=== PATIENT | female | born 1985 | race Caucasian/White ===

== ENCOUNTER → 2017-08-25 | Outpatient (CLI) | payer OTHER ==
[2017-08-25 17:52] LABS: HEMATOCRIT 42.1 % (36.0-47.0); HEMOGLOBIN 13.6 g/dl (12.0-16.0); MEAN CORPUSCULAR HEMOGLOBIN 27.6 pg (27.0-33.0); MEAN CORPUSCULAR HGB CONC 32.3 g/dl (32.0-36.5); MEAN CORPUSCULAR VOLUME 85.6 fl (80.0-96.0); PLATELET COUNT, AUTOMATED 268 10^3/uL (150-450); RED BLOOD COUNT 4.92 10^6/uL (4.00-5.40); RED CELL DISTRIBUTION WIDTH 13.3 % (11.5-14.5); WHITE BLOOD COUNT 7.6 10^3/uL (4.0-10.0)
[2017-08-25 17:56] LABS: ALBUMIN/GLOBULIN RATIO 1.18 (1.00-1.93); ALKALINE PHOSPHATASE 118 U/L (45-117); ALT/SGPT 35 U/L (12-78); ANION GAP 6 MEQ/L (8-16); AST/SGOT 20 U/L (7-37); BILIRUBIN,TOTAL 0.7 MG/DL (0.2-1.0); BLOOD UREA NITROGEN 9 MG/DL (7-18); CALCIUM LEVEL 8.5 MG/DL (8.5-10.1); CARBON DIOXIDE LEVEL 28 MEQ/L (21-32); CHLORIDE LEVEL 108 MEQ/L (98-107); CHOLESTEROL LEVEL 139 MG/DL (<200); CHOLESTEROL RISK RATIO 3.309 (<5); CREATININE FOR GFR 0.84 MG/DL (0.55-1.30); FREE T4 1.07 NG/DL (0.76-1.46); GLOMERULAR FILTRATION RATE > 60.0 (>60); GLUCOSE, FASTING 90 MG/DL (70-100); HDL CHOLESTEROL 42 MG/DL (>40); LDL CHOLESTEROL 74.6 MG/DL (<100); NON-HDL-C 97 MG/DL; POTASSIUM SERUM 4.2 MEQ/L (3.5-5.1); SODIUM LEVEL 142 MEQ/L (136-145); TOTAL PROTEIN 7.4 GM/DL (6.4-8.2); TRIGLYCERIDES LEVEL 112 MG/DL (<150)
[2017-08-27 09:25] LABS: TOTAL 25(OH) VITAMIN D 33.7 NG/ML (30.0-100.0)
== END ==
LOC: M ADAMS 09:03
DX: Z13.0 Encounter for screening for diseases of the blood and blood-forming organs and certain disorders involving the immune mechanism (principal); Z13.29 Encounter for screening for other suspected endocrine disorder; E55.9 Vitamin D deficiency, unspecified; Z13.220 Encounter for screening for lipoid disorders
CPT/HCPCS: 84443

== ENCOUNTER 2017-09-04 16:01 | Emergency (ER) | payer OTHER ==
[2017-09-04] MEDS: EXPOSURE KIT-ADULT 7 DAY SUPPLY PO (19:15)
[2017-09-04 19:34] LABS: BASO # 0.1 10^3/uL (0.0-0.2); BASO % 0.7 % (0.0-1.0); EOS # 0.2 10^3/uL (0.0-0.50); EOS % 2.3 % (0.0-3.0); HEMATOCRIT 42.2 % (36.0-47.0); HEMOGLOBIN 14.2 g/dl (12.0-16.0); IMMATURE GRANULOCYTE % 0.2 % (0-3.0); LYMPH # 2.2 10^3/uL (1.5-4.5); MEAN CORPUSCULAR HEMOGLOBIN 28.5 pg (27.0-33.0); MEAN CORPUSCULAR HGB CONC 33.6 g/dl (32.0-36.5); MEAN CORPUSCULAR VOLUME 84.6 fl (80.0-96.0); MONO # 0.6 10^3/uL (0.0-0.8); MONO % 6.3 % (0.0-5.0); NEUTROPHILS # 7.1 10^3/uL (1.8-7.7); NEUTROPHILS % 69.5 % (36.0-66.0); PLATELET COUNT, AUTOMATED 267 10^3/uL (150-450); RED BLOOD COUNT 4.99 10^6/uL (4.00-5.40); RED CELL DISTRIBUTION WIDTH 13.2 % (11.5-14.5); WHITE BLOOD COUNT 10.2 10^3/uL (4.0-10.0)
[2017-09-04 20:09] LABS: ALBUMIN 4.3 GM/DL (3.2-5.2); ALBUMIN/GLOBULIN RATIO 1.26 (1.00-1.93); ALKALINE PHOSPHATASE 115 U/L (45-117); ALT/SGPT 30 U/L (12-78); ANION GAP 9 MEQ/L (8-16); AST/SGOT 17 U/L (7-37); BILIRUBIN,TOTAL 0.5 MG/DL (0.2-1.0); BLOOD UREA NITROGEN 12 MG/DL (7-18); CALCIUM LEVEL 9.2 MG/DL (8.5-10.1); CARBON DIOXIDE LEVEL 27 MEQ/L (21-32); CHLORIDE LEVEL 104 MEQ/L (98-107); CREATININE FOR GFR 0.84 MG/DL (0.55-1.30); GLOMERULAR FILTRATION RATE > 60.0 (>60); GLUCOSE, FASTING 81 MG/DL (70-100); POTASSIUM SERUM 3.9 MEQ/L (3.5-5.1); SODIUM LEVEL 140 MEQ/L (136-145); TOTAL PROTEIN 7.7 GM/DL (6.4-8.2)
[2017-09-05 10:04] LABS: HEPATITIS B SURFACE ANTIGEN NEGATIVE (NEGATIVE)
[2017-09-05 10:27] LABS: HIV 1&2 SCREEN CENTAUR NEGATIVE (NEGATIVE)
[2017-09-05 10:28] LABS: HEPATITIS B SURFACE ANTIBODY POSITIVE (POSITIVE)
== END 2017-09-04 19:49 | disposition home or self-care (01) ==
LOC: M ED 16:01
DX: Z77.21 Contact with and (suspected) exposure to potentially hazardous body fluids (principal); Z79.899 Other long term (current) drug therapy
CPT/HCPCS: 80053

== ENCOUNTER → 2018-05-03 | Outpatient (REF) | payer OTHER | LOC: M LAB REF 19:09 | DX: J02.9 Acute pharyngitis, unspecified (principal) ==

== ENCOUNTER → 2018-09-07 | Outpatient (CLI) | payer OTHER ==
[~2018-09-07] MED LIST: DOCU10CA PO; IBUP80TA PO; MAPA500T2 PO; PRENTAB16 PO; RALT40TA PO; TRUVTAB PO; VITA20008 PO; ZOFR4TAB14 PO
[2018-09-07 19:09] LABS: BASO # 0.1 10^3/uL (0.0-0.2); EOS # 0.2 10^3/uL (0.0-0.50); EOS % 2.7 % (0.0-3.0); HEMATOCRIT 41.3 % (36.0-47.0); HEMOGLOBIN 13.3 g/dl (12.0-15.5); LYMPH # 1.3 10^3/uL (1.5-4.5); LYMPH % 17.6 % (24.0-44.0); MEAN CORPUSCULAR HGB CONC 32.2 g/dl (32.0-36.5); MEAN CORPUSCULAR VOLUME 86.9 fl (80.0-96.0); MONO # 0.5 10^3/uL (0.0-0.8); MONO % 6.6 % (0.0-5.0); NEUTROPHILS # 5.1 10^3/uL (1.8-7.7); PLATELET COUNT, AUTOMATED 264 10^3/uL (150-450); RED BLOOD COUNT 4.75 10^6/uL (4.00-5.40); WHITE BLOOD COUNT 7.1 10^3/uL (4.0-10.0)
[2018-09-07 19:20] LABS: ALBUMIN 3.8 GM/DL (3.2-5.2); ALT/SGPT 37 U/L (12-78); BILIRUBIN,TOTAL 0.6 MG/DL (0.2-1.0); BLOOD UREA NITROGEN 9 MG/DL (7-18); CALCIUM LEVEL 8.2 MG/DL (8.5-10.1); CARBON DIOXIDE LEVEL 25 MEQ/L (21-32); CHLORIDE LEVEL 110 MEQ/L (98-107); CHOLESTEROL LEVEL 149 MG/DL (<200); CHOLESTEROL RISK RATIO 3.725 (<5); FREE T4 0.94 NG/DL (0.76-1.46); GLOMERULAR FILTRATION RATE > 60.0 (>60); GLUCOSE, FASTING 99 MG/DL (70-100); HDL CHOLESTEROL 40 MG/DL (>40); LDL CHOLESTEROL 87 MG/DL (<100); NON-HDL-C 109 MG/DL; POTASSIUM SERUM 4.1 MEQ/L (3.5-5.1); SODIUM LEVEL 142 MEQ/L (136-145); TOTAL PROTEIN 7.4 GM/DL (6.4-8.2); TRIGLYCERIDES LEVEL 111 MG/DL (<150)
[2018-09-07 20:02] LABS: HEMOGLOBIN A1c 5.2 %
[2018-09-09 10:38] LABS: TOTAL 25(OH) VITAMIN D 49.6 NG/ML (30.0-100.0)
[2018-09-09 10:39] LABS: ESTRADIOL 128.2 PG/ML; LUTEINIZING HORMONE 8.9 mIU/mL; PROGESTERONE 6.47 NG/ML
[2018-09-09 10:41] LABS: FOLLICLE STIMULATING HORMONE 3.5 mIU/mL
[2018-09-10 12:12] LABS: TESTOSTERONE FREE (DIRECT) 0.9 pg/mL (0.0-4.2)
[2018-09-10 14:48] LABS: INSULIN LEVEL 20.7 uIU/mL (2.6-24.9)
== END ==
LOC: M ADAMS 11:02
PROVIDERS: ATTEND Family Medicine
DX: N92.6 Irregular menstruation, unspecified (principal); E55.9 Vitamin D deficiency, unspecified; Z13.220 Encounter for screening for lipoid disorders; Z13.29 Encounter for screening for other suspected endocrine disorder; E66.9 Obesity, unspecified

== ENCOUNTER → 2019-01-03 | Outpatient (REF) | payer OTHER ==
[2019-01-03 13:26] LABS: ALT/SGPT 42 U/L (12-78); BILIRUBIN,TOTAL 0.6 MG/DL (0.2-1.0); BLOOD UREA NITROGEN 13 MG/DL (7-18); C REACTIVE PROTEIN QUANTITATIV 0.45 MG/DL (0.00-0.30); CALCIUM LEVEL 8.8 MG/DL (8.5-10.1); CARBON DIOXIDE LEVEL 27 MEQ/L (21-32); CHLORIDE LEVEL 107 MEQ/L (98-107); CORTISOL AM 7.9 UG/DL (4.3-22.4); CREATININE FOR GFR 0.89 MG/DL (0.55-1.30); FREE T3 2.9 PG/ML (2.2-4.0); FREE T4 0.98 NG/DL (0.76-1.46); GLOMERULAR FILTRATION RATE > 60.0 (>60); GLUCOSE, FASTING 87 MG/DL (70-100); LUTEINIZING HORMONE 5.7 mIU/mL; POTASSIUM SERUM 4.4 MEQ/L (3.5-5.1); SODIUM LEVEL 140 MEQ/L (136-145); THYROGLOBULIN ANTIBODY 75.9 U/ML (<60.0); THYROID PEROXIDASE ANTIBODY 281.1 U/ML (<60.0); TOTAL PROTEIN 7.8 GM/DL (6.4-8.2)
[2019-01-03 13:27] LABS: FOLLICLE STIMULATING HORMONE 5.1 mIU/mL
[2019-01-03 14:53] LABS: HEMOGLOBIN A1c 5.2 %
[2019-01-04 17:14] LABS: INSULIN LEVEL 15.7 uIU/mL (2.6-24.9); TESTOSTERONE FREE (DIRECT) 0.5 pg/mL (0.0-4.2)
== END ==
LOC: M LAB REF 12:46
PROVIDERS: ATTEND Family Medicine
DX: E28.2 Polycystic ovarian syndrome (principal)

== ENCOUNTER → 2019-04-06 | Outpatient (CLI) | payer OTHER ==
[2019-04-06 17:03] LABS: ALBUMIN 3.6 GM/DL (3.2-5.2); ALT/SGPT 24 U/L (12-78); BILIRUBIN,TOTAL 0.5 MG/DL (0.2-1.0); BLOOD UREA NITROGEN 10 MG/DL (7-18); CALCIUM LEVEL 8.5 MG/DL (8.5-10.1); CARBON DIOXIDE LEVEL 26 MEQ/L (21-32); CHLORIDE LEVEL 106 MEQ/L (98-107); CREATININE FOR GFR 0.93 MG/DL (0.55-1.30); FREE T4 0.82 NG/DL (0.76-1.46); GLOMERULAR FILTRATION RATE > 60.0 (>60); GLUCOSE, FASTING 85 MG/DL (70-100); POTASSIUM SERUM 4.3 MEQ/L (3.5-5.1); SODIUM LEVEL 140 MEQ/L (136-145); TOTAL PROTEIN 7.1 GM/DL (6.4-8.2)
[2019-04-06 17:22] LABS: HEMOGLOBIN A1c 5.3 %
[2019-04-07 10:47] LABS: FOLLICLE STIMULATING HORMONE 2.8 mIU/mL
[2019-04-07 11:05] LABS: LUTEINIZING HORMONE 4.9 mIU/mL
[2019-04-09 08:19] LABS: TESTOSTERONE FREE (DIRECT) 1.9 pg/mL (0.0-4.2)
== END ==
LOC: M ADAMS 10:03
PROVIDERS: ATTEND Family Medicine
DX: E06.3 Autoimmune thyroiditis (principal); E28.2 Polycystic ovarian syndrome

== ENCOUNTER → 2019-05-22 | Outpatient (REF) | payer OTHER ==
[2019-05-22 17:59] LABS: HEMATOCRIT 37.3 % (36.0-47.0); HEMOGLOBIN 11.3 g/dl (12.0-15.5); MEAN CORPUSCULAR HEMOGLOBIN 24.6 pg (27.0-33.0); MEAN CORPUSCULAR HGB CONC 30.3 g/dl (32.0-36.5); MEAN CORPUSCULAR VOLUME 81.3 fl (80.0-96.0); PLATELET COUNT, AUTOMATED 280 10^3/uL (150-450); RED BLOOD COUNT 4.59 10^6/uL (4.00-5.40); WHITE BLOOD COUNT 8.6 10^3/uL (4.0-10.0)
[2019-05-22 19:05] LABS: HCG, SERUM QUANTITATIVE 52840 MIU/ML
[2019-05-23 10:56] LABS: RUBELLA IgG QUALITATIVE IMMUNE (IMMUNE)
[2019-05-23 11:25] LABS: HEPATITIS C VIRUS ABY INDEX 0.1 INDEX (<0.8)
[2019-05-23 11:26] LABS: HIV 1&2 SCREEN CENTAUR NEGATIVE (NEGATIVE)
== END ==
LOC: M LAB REF 17:20
PROVIDERS: ATTEND Obstetrics & Gynecology
DX: O36.80X0 Pregnancy with inconclusive fetal viability, not applicable or unspecified (principal); Z32.01 Encounter for pregnancy test, result positive

== ENCOUNTER → 2019-11-11 | Outpatient (REF) | payer OTHER ==
[~2019-11-11] MED LIST changes: +METF-877 PO; +METF500T13 PO
[2019-11-11 14:13] LABS: HEMATOCRIT 40.1 % (36.0-47.0); HEMOGLOBIN 13.6 g/dl (12.0-15.5); MEAN CORPUSCULAR HEMOGLOBIN 28.2 pg (27.0-33.0); MEAN CORPUSCULAR HGB CONC 33.9 g/dl (32.0-36.5); MEAN CORPUSCULAR VOLUME 83.2 fl (80.0-96.0); PLATELET COUNT, AUTOMATED 249 10^3/uL (150-450); RED BLOOD COUNT 4.82 10^6/uL (4.00-5.40); WHITE BLOOD COUNT 10.7 10^3/uL (4.0-10.0)
[2019-11-12 03:53] LABS: HCG, SERUM QUANTITATIVE 50508 MIU/ML
[2019-11-12 10:33] LABS: HEPATITIS C VIRUS ABY INDEX 0.1 INDEX (<0.8); HIV 1&2 SCREEN CENTAUR NEGATIVE (NEGATIVE)
== END ==
LOC: M LAB REF 12:36
PROVIDERS: ATTEND Obstetrics & Gynecology
DX: Z36.89 Encounter for other specified antenatal screening (principal); Z32.01 Encounter for pregnancy test, result positive

== ENCOUNTER → 2019-11-14 | Outpatient (CLI) | payer OTHER ==
[~2019-11-14] MED LIST changes: -METF-877 PO; -METF500T13 PO
--- NOTE | 2019-11-14 14:16 | REP ---
OB ULTRASOUND: Real-time sonographic evaluation of gravid uterus performed. There is a single living intrauterine gestation. The estimated gestational age is 14 weeks 2 days based on the LMP, EDC 05/12/2020. Today's measurements indicate appropriate growth. BPD 27 mm = 14 weeks 5 days, 66th percentile HC 97 mm = 14 weeks 3 days, 57th percentile AC 76 mm = 14 weeks 0 days, 44th percentile Femur length 14 mm = 14 weeks 1 day, 45th percentile HC/AC ratio 1.28, normal range 1.11-1.30. Estimated weight 91 grams, 33rd percentile. Cervix closed and measures 3.6 cm in length. heart rate 167 beats per minute. Placenta is posterior and somewhat low lying. There is no previa or abruption. Amniotic fluid within normal limits. Partially calcified fundal fibroid measures 2.9 cm in diameter.
== END ==
LOC: M WHC 11:29
PROVIDERS: ATTEND Obstetrics & Gynecology
DX: O36.80X0 Pregnancy with inconclusive fetal viability, not applicable or unspecified (principal)

== ENCOUNTER → 2019-12-23 | Outpatient (CLI) | payer OTHER ==
--- NOTE | 2019-12-24 02:57 | REP ---
OB ULTRASOUND: Real-time sonographic evaluation of gravid uterus performed. There is a single living intrauterine gestation. The estimated gestational age is 19 weeks 6 days, EDC 05/12/2020. Today's measurements indicate appropriate growth. BPD 45 mm = 19 weeks 5 days, 45th percentile HC 170 mm = 19 weeks 4 days, 40th percentile AC 135 mm = 19 weeks 0 days, 30th percentile Femur length 30 mm = 19 weeks 3 days, 37th percentile HC/AC ratio 1.25 is upper limits of normal range 1.06 to 1.25. Estimated weight 281 grams, 25th percentile. Cervical length: Cervix is closed and measures 3.8 cm in length. heart rate: 155 beats per minute. SEEN/GROSSLY UNREMARKABLE Lateral ventricles Yes Posterior fossa Yes Upper lip No Four-chamber heart No LVOT No RVOT No Stomach Yes Cord insertion Yes Three vessel cord Yes Kidneys Yes Bladder No Spine Yes position: Variable. Placenta: Posterior and grade 1 with no previa or abruption. Amniotic fluid: Within normal limits. Cystic structure left ovary probably represents a corpus luteum. This measures about 1.2 cm in diameter. There appears to be a calcified fibroid in the anterior uterus 3.1 cm in maximum diameter. This is on the left side. To the right of this, a probable second fibroid is noted 4.4 cm in diameter.
== END ==
LOC: M WHC 13:32
PROVIDERS: ATTEND Obstetrics & Gynecology
DX: Z34.82 Encounter for supervision of other normal pregnancy, second trimester (principal); Z36.89 Encounter for other specified antenatal screening; Z3A.19 19 weeks gestation of pregnancy

== ENCOUNTER → 2020-01-28 | Outpatient (CLI) | payer OTHER ==
--- NOTE | 2020-03-22 08:49 | REP ---
FOLLOW-UP OBSTETRIC ULTRASOUND COMPARISON: 12/20/2019. TECHNIQUE: Transabdominal obstetric ultrasound with color flow Doppler evaluation. FINDINGS: Single live intrauterine in cephalic presentation. motion was identified by the technologist. Placenta noted posteriorly and grade 1 without evidence for placenta previa or abruption. Amniotic fluid is normal. Cervix measures 4.9 cm in length and appears closed. Uterine fibroids are again identified and include a partially calcified left intramural fibroid measuring 3 cm in maximum diameter and right intramural fibroid measuring 5.9 cm in diameter. Gestational age by current biometrical measurements 25 weeks 0 days with estimated date of delivery 05/12/2020. heart rate equals 144 beats per minute. Estimated weight 737 grams (37th percentile). Anatomic assessment demonstrates normal spine, stomach, kidneys/bladder, left cardiac ventricular outflow tract, three-vessel cord, and facial features. IMPRESSION: * Single live intrauterine in cephalic presentation demonstrating appropriate interval growth. * Continued limited evaluation of the heart and right cardiac ventricular outflow tract. MTDD
== END ==
LOC: M WHC 13:26
PROVIDERS: ATTEND Obstetrics & Gynecology
DX: Z34.82 Encounter for supervision of other normal pregnancy, second trimester (principal); Z3A.25 25 weeks gestation of pregnancy

== ENCOUNTER → 2020-03-05 | Outpatient (REF) | payer OTHER ==
[2020-03-05 16:03] LABS: HEMOGLOBIN A1c 5.3 %
== END ==
LOC: M LABDRWAD 12:24
PROVIDERS: ATTEND Obstetrics & Gynecology
DX: O24.419 Gestational diabetes mellitus in pregnancy, unspecified control (principal)

== ENCOUNTER → 2020-03-18 | Outpatient (CLI) | payer OTHER ==
--- NOTE | 2020-04-01 07:27 | REP ---
LIMITED OBSTETRICAL ULTRASOUND CLINICAL: Anatomical follow-up. FINDINGS: Ultrasound examination demonstrates a single live intrauterine in breech presentation. motion was identified by the technologist. Placenta noted posteriorly and grade 2 without evidence for placenta previa or abruption. Amniotic fluid volume is normal. Cervix measures 3.4 cm in length and appears closed. Anterior intramural fibroid measuring 6.5 cm in maximal diameter. Gestational age by last menstrual period (LMP) 32 weeks 1 day with estimated date of delivery 05/12/2020. heart rate (FHR) 143 beats per minute. Amniotic fluid index (LUAN) 14.3 cm (8.6-24.2). Estimated weight by current measurements 1778 grams (22nd percentile). Limited anatomical assessment demonstrates normal four chamber heart and cardiac ventricular outflow tracts. IMPRESSION: * Single live advanced gestation in breech presentation demonstrating appropriate estimated weight. * Anterior fibroid measuring 6.5 cm in maximal diameter. * In conjunction with prior examination, anatomic assessment is complete and normal. MTDD
== END ==
LOC: M WHC 14:59
PROVIDERS: ATTEND Obstetrics & Gynecology
DX: O32.1XX0 Maternal care for breech presentation, not applicable or unspecified (principal); Z3A.32 32 weeks gestation of pregnancy

== ENCOUNTER → 2020-04-01 | Outpatient (CLI) | payer OTHER ==
--- NOTE | 2020-04-06 11:23 | REP ---
OBSTETRIC SONOGRAPHY HISTORY: Supervision of . Gestational diabetes. growth study and amniotic fluid index (LUAN). FINDINGS: Scanning through the gravid uterus demonstrates a single intrauterine gestation in a cephalic lie. heart rate is recorded at 147 beats per minute. Amniotic fluid is subjectively normal. LUAN is normal at 15.2 cm. A posterior grade 2 placenta is seen without evidence for previa. Three vessel umbilical cord is observed. Closed cervical length is measured at 3.1 cm viewed transabdominally. An anterior myometrial fibroid is again noted 3.8 cm x 4.5 x 3.1 cm. Second rim calcified fibroid is suspected 2.9 cm in greatest diameter. BIOMETRY CHART: BPD 8.7 cm 35 weeks 2 days Head circumference 32.0 cm 36 weeks 0 days Abdominal circumference 29.7 cm 33 weeks 5 days Femur length 6.4 cm 33 weeks 1 day Humeral length 5.5 cm 32 weeks 1 day AC/HC ratio 1.08 Normal Cephalic index 0.76 Normal Estimated weight 2303 grams, 5 pounds 1 ounce, 38th percentile for 34 weeks 1 day. IMPRESSION: Viable single intrauterine gestation at 34 weeks 0 days by todays composite sonographic criteria. Expected gestational age estimated based on prior sonography is 34 weeks 1 day. Estimated date of delivery (RAGHU) by prior sonography [facility]
== END ==
LOC: M WHC 14:58
PROVIDERS: ATTEND Obstetrics & Gynecology
DX: O24.415 Gestational diabetes mellitus in pregnancy, controlled by oral hypoglycemic drugs (principal)

== ENCOUNTER → 2020-04-23 | Outpatient (CLI) | payer OTHER ==
--- NOTE | 2020-04-23 16:33 | REP ---
INDICATION: LUAN/EFW COMPARISON: 04/01/2020 TECHNIQUE: Transabdominal obstetrical ultrasound with color Doppler evaluation. FINDINGS: Examination demonstrates a single live intrauterine in cephalic presentation. motion is identified by technologist. Placenta is noted posterior and grade 2 without evidence for placenta previa or abruption. Amniotic fluid volume is normal. Cervix measures 3.8 cm in length and appears closed. Anterior fibroids measuring 4.2 cm and 3.4 cm maximal diameter noted. Gestational age by LMP 37 weeks 0 days with RAGHU 05/14/2020. Gestational age by current measurements 37 weeks 6 days with RAGHU 05/08/2020. FHR equals 149 beats per minute. BPD: 9.3 cm 37 weeks 6 days HC: 33.6 cm 38 weeks 3 days AC: 34.2 cm 38 weeks 1 day FL: 7.3 cm 37 weeks 4 days HL: 6.4 cm 37 weeks 2 days LUAN 11.5 cm (7.5-24.4) HC/AC: 0.98 Estimated weight 3371 grams (81stpercentile). IMPRESSION: Single live advanced gestation in cephalic presentation demonstrating appropriate interval growth and estimated weight. Anterior intramural fibroids. Amniotic fluid volume normal. <Electronically signed by John Jimenez > 04/23/20 [id number]
== END ==
LOC: M WHC 15:28
PROVIDERS: ATTEND Obstetrics & Gynecology
DX: O24.415 Gestational diabetes mellitus in pregnancy, controlled by oral hypoglycemic drugs (principal); O34.10 Maternal care for benign tumor of corpus uteri, unspecified trimester; Z3A.37 37 weeks gestation of pregnancy

== ENCOUNTER → 2020-05-14 | Outpatient (CLI) | payer OTHER ==
[~2020-05-14] MED LIST changes: +METF-877 PO; +METF500T13 PO
--- NOTE | 2020-05-14 10:43 | REP ---
INDICATION: LUAN/EFW/GESTATIONAL DIABETES. COMPARISON: Comparison study April 23, 2020.. TECHNIQUE: obstetric sonography. Transabdominal scanning. FINDINGS: Scanning through the gravid uterus demonstrates a viable single intrauterine gestation in cephalic lie. motion is observed and heart rate is recorded at 138 beats per minute. A posterior placenta is seen, grade 2, without evidence of placenta previa. Amniotic fluid is subjectively normal. Closed cervical length is measured at 3.1 cm transabdominally. No extrauterine abnormality is observed. 2 possible anterior uterine fibroids are noted measuring 3.8 x 2.8 x 3.8 cm and 3.1 x 2.3 x 2.7 cm. The smaller fibroid appears to have an echogenic likely calcific rib margin. anatomic scanning is not performed today.. Biometry chart: BPD 9.7 cm, 39 weeks 6 days Head circumference 34.9 cm, 40 weeks 4 days Abdominal circumference 34.5 cm, 38 weeks 3 days Femur length 7.6 cm, 39 weeks 0 days Humeral length 6.4 cm, 37 weeks 0 days HC AC ratio normal 1.01 Cephalic index normal 0.79 Estimated weight 3640 g, 8 lb 0 oz, 53rd percentile for 40 weeks 0 days IMPRESSION: Viable single intrauterine gestation at 39 weeks 0 days by today's composite sonographic criteria. RAGHU by today's sonography May 21, 2020.. No complication identified. Expected gestational age estimate based on prior sonography 40 weeks 2 days, RAGHU by prior sonography May 12, 2020. two anterior myometrial fibroids noted. <Electronically signed by Luis Wetzel > 05/14/20 [id number]
== END ==
LOC: M WHC 08:33
PROVIDERS: ATTEND Advanced Practice Midwife
DX: O24.415 Gestational diabetes mellitus in pregnancy, controlled by oral hypoglycemic drugs (principal); Z3A.39 39 weeks gestation of pregnancy; O34.13 Maternal care for benign tumor of corpus uteri, third trimester; D25.9 Leiomyoma of uterus, unspecified

== ENCOUNTER 2020-05-17 16:45 | Inpatient (IN) | payer OTHER ==
[~2020-05-17] VITALS: Ht 161.3 cm; Wt 103.4 kg
[2020-05-17] VITALS (8 sets, daily range): BP systolic 109–159; BP diastolic 58–115
[~2020-05-17 16:45] MED LIST changes: -METF-877 PO; -METF500T13 PO
[2020-05-17] MEDS ORDERED: LACTATED RINGER'S 1000 ML IV STA (17:12)
[2020-05-17 18:18] LABS: HEMATOCRIT 38.6 % (36.0-47.0); HEMOGLOBIN 12.3 g/dl (12.0-15.5); MEAN CORPUSCULAR HGB CONC 31.9 g/dl (32.0-36.5); MEAN CORPUSCULAR VOLUME 81.6 fl (80.0-96.0); PLATELET COUNT, AUTOMATED 231 10^3/uL (150-450); RED BLOOD COUNT 4.73 10^6/uL (4.00-5.40); WHITE BLOOD COUNT 10.3 10^3/uL (4.0-10.0)
[2020-05-17] MEDS: miSOPROStol 50 MCG 1/2 TAB (S0191) PO SCH ×2 (18:40→23:13)
[2020-05-17] MEDS: LR 1,000 ML IV SCH (19:15)
[2020-05-17] MEDS ORDERED: METF500T13 PO (19:37)
[2020-05-17] MEDS ORDERED: METF-877 PO (19:37)
[2020-05-17 19:41] LABS: ALT/SGPT 15 U/L (12-78); BILIRUBIN,TOTAL 0.3 MG/DL (0.2-1.0); CREATININE FOR GFR 0.67 MG/DL (0.55-1.30); GLOMERULAR FILTRATION RATE > 60.0 (>60); LDH LACTATE DEHYDROGENASE 149 U/L (84-246)
[2020-05-17 20:10] LABS: GLUCOSE,RANDOM 68 MG/DL (LESS THAN 200)
[2020-05-17] MEDS ORDERED: metFORMIN (GLUCOPHAGE) 1000 MG TABLET PO ONE (21:00)
[2020-05-17] MEDS ORDERED: metFORMIN XR 750 MG TAB PO ONE (21:00)
[2020-05-18] VITALS (48 sets, daily range): BP systolic 85–175; BP diastolic 50–92
[2020-05-18] MEDS: miSOPROStol 50 MCG 1/2 TAB (S0191) PO SCH (03:22)
[2020-05-18] MEDS ORDERED: OXYTOCIN 30 UNITS IN 0.9% NaCl 500ML IV BAG (J2590) As Ordered ONE (07:59)
[2020-05-18] MEDS ORDERED: OXYTOCIN DRIP 30 UNITS in IV 1 EA IV SCH ×2 (08:00→15:45)
[2020-05-18] MEDS: LR 1,000 ML IV SCH (12:24)
[2020-05-18] MEDS ORDERED: FENTANYL 2MCG/ML ROPIVACAINE 0.2% IN 0.9% NACL 100ML IVBAG As Ordered ONE (12:28)
[2020-05-18] MEDS ORDERED: NALOXONE INJ 0.4MG/1ML VIAL (J2310 PER 1MG) IV PRN (14:15)
[2020-05-18] MEDS ORDERED: LACTATED RINGER'S 1000 ML IV PRN (14:15)
[2020-05-18] MEDS ORDERED: EPIDURAL COMMENT XX SCH (14:15)
[2020-05-18] MEDS ORDERED: EPIDURAL/PCA KEYS XX PRN (14:15)
[2020-05-18] MEDS ORDERED: ONDANSETRON 4MG/2ML VIAL IV PRN (14:15)
[2020-05-18] MEDS ORDERED: diphenhydrAMINE 50MG/ML VIAL (J1200) IV PRN (14:15)
[2020-05-18] MEDS ORDERED: REFRIGERATOR IV KEYS XX PRN (14:15)
[2020-05-18] MEDS ORDERED: FENTANYL/ROPIVACAINE/NACL BAG 100 ML EPIDURAL SCH (14:15)
[2020-05-18] MEDS ORDERED: ePHEDrine SULFATE 25 MG/5 ML(5MG/ML) SYRINGE IV PRN (14:15)
[2020-05-18] MEDS ORDERED: RHOGAM 300 MCG (1500 IU) INJ (J2790) IM SCH (15:45)
[2020-05-18] MEDS ORDERED: MEASLES,MUMPS,RUBELLA VACCINE INJ (MMR-II) (90707) SC SCH (15:45)
[2020-05-18] MEDS ORDERED: DOCUSATE SODIUM 100 MG CAP PO PRN (15:45)
[2020-05-18] MEDS ORDERED: ACETAMINOPHEN TAB 650MG DOSE (2X325MG) PO PRN (15:45)
[2020-05-18] MEDS ORDERED: IBUPROFEN 600MG TAB PO PRN (15:45)
[2020-05-18] MEDS ORDERED: IBUPROFEN 800 MG TAB PO PRN (15:45)
[2020-05-18] MEDS ORDERED: METHYLERGONOVINE MALEATE 0.2 MG TAB PO PRN (15:45)
[2020-05-18] MEDS ORDERED: ACETAMINOPHEN 500 MG TAB PO PRN (15:45)
[2020-05-18 15:48] LABS: CORD GAS ABE V -8.1; CORD GAS HCO3 V 18.2 MEQ/L; CORD GAS O2 SAT V 81.6 %; CORD GAS PCO2 V 40.3 mmHg; CORD GAS PH V 7.273 UNITS; CORD GAS PO2 V 41.6 mmHg; CORD GAS SBC V 17.7 MEQ/L; CORD GAS TCO2 V 19.5 MEQ/L
[2020-05-18 15:49] LABS: CORD GAS ABE A -11.7; CORD GAS HCO3 A 20.6 MEQ/L; CORD GAS O2 SAT A 43.9 %; CORD GAS PCO2 A 76.8 mmHg; CORD GAS PH A 7.047 UNITS; CORD GAS PO2 A 26.7 mmHg; CORD GAS SBC A 14.4 MEQ/L
[2020-05-18] MEDS ORDERED: SLF 3 ML SYR IV PRN (16:30)
[2020-05-18] MEDS ORDERED: SLF 3 ML SYR IV SCH (22:00)
[2020-05-19 05:26] VITALS: BP 129/68
[2020-05-19] MEDS: DIBUCAINE 1% OINTMENT 30GM TOP PRN ×2 (07:55→17:00)
[2020-05-19] MEDS ORDERED: BOOSTRIX/ADACEL VACCINE (DIPHTH/PERTUSS/ACELL/TETANUS) 0.5ML SYR IM ONE (09:00)
[2020-05-19] MEDS ORDERED: PRENATAL VITAMINS CHEWABLE TABLET PO SCH (09:00)
--- NOTE | 2020-05-20 07:47 | HPE ---
DATE OF ADMISSION: 05/17/2020 Mary Jane is a 35-year-old female, 3, para 1-0-1-1, who was admitted at 39-5/7 weeks gestation for an induction. She has a history of type 2 diabetes, controlled on metformin. After counseling in the office, a decision was made for admission. Upon admission, no bleeding, no leakage of fluid. Good movement. Her initial fingerstick was within normal limits. Her record is reviewed, which is essentially unremarkable. LABORATORY: Blood type is O positive, rubella immune. Hepatitis negative, HIV negative, GC/chlamydia negative. PAST MEDICAL HISTORY: Significant for type 2 diabetes. PAST SURGICAL HISTORY: [place] tooth extraction. SOCIAL HISTORY: . Denies any alcohol, drugs, or cigarette smoking. REVIEW OF SYSTEMS: Unremarkable. MEDICATIONS: vitamin, metformin. PHYSICAL EXAMINATION: An obese female in no acute distress. Abdomen soft, nontender, nondistended. Extremities: No clubbing, cyanosis, or edema. Vaginal exam: Fingertip to 1 cm dilated, thick, and posterior. Fetus in vertex position. Category 1 tracing with irregular contractions. ASSESSMENT: 1. Intrauterine at 39+ weeks gestation. 2. Type 2 diabetic, on metformin. PLAN: Admit to labor and delivery. Induction process discussed. Will proceed with a Cytotec induction followed by Pitocin induction. MTDD
--- NOTE | 2020-05-20 12:03 | DN ---
DATE OF DELIVERY: 05/18/2020 Mary Jane is a 35-year-old female, 3, para 1, 0, 1, 1 who was admitted at 39+ weeks gestation for an induction. She underwent Cytotec induction followed by artificial rupture of membranes and Pitocin augmentation. She then progressed to fully dilated, delivered a live male infant in occiput anterior position over midline episiotomy. Apgars 8 and 9. weight 7 pounds 9 ounces. Placenta delivered spontaneously intact, 3-vessel cord. Perineum, vagina, cervix inspected. The episiotomy repaired using 2-0 chromic. Estimated blood loss 300 mL. Both mother and baby in stable condition. MTDD
== END 2020-05-19 18:20 | disposition home or self-care (01) | DRG 807 ==
LOC: M LDI 16:45 → M OBS 05-18 18:20
PROVIDERS: ADMIT Obstetrics & Gynecology; ATTEND Obstetrics & Gynecology
PROC: 3E0P7GC Introduction of Other Therapeutic Substance into Female Reproductive, Via Natural or Artificial Opening (ICD-10-PCS; 2020-05-17)
PROC: 10E0XZZ Delivery of Products of Conception, External Approach (ICD-10-PCS; principal; 2020-05-18)
PROC: 0W8NXZZ Division of Female Perineum, External Approach (ICD-10-PCS; 2020-05-18)
DX: O24.12 Pre-existing type 2 diabetes mellitus, in childbirth (principal); Z37.0 Single live birth; Z3A.39 39 weeks gestation of pregnancy; O99.214 Obesity complicating childbirth; E66.9 Obesity, unspecified; Z79.84 Long term (current) use of oral hypoglycemic drugs

== ENCOUNTER → 2020-07-17 | Outpatient (CLI) | payer OTHER ==
[~2020-07-17] MED LIST changes: +METF-877 PO; +METF500T13 PO
== END ==
LOC: M LAB 09:47
PROVIDERS: ATTEND Advanced Practice Midwife
DX: Z39.2 Encounter for routine postpartum follow-up (principal)

== ENCOUNTER → 2020-08-05 | Outpatient (REF) | payer OTHER ==
[2020-08-05 17:09] LABS: ALBUMIN 3.7 GM/DL (3.2-5.2); ALT/SGPT 82 U/L (12-78); BILIRUBIN,TOTAL 0.4 MG/DL (0.2-1.0); BLOOD UREA NITROGEN 12 MG/DL (7-18); CALCIUM LEVEL 8.9 MG/DL (8.5-10.1); CARBON DIOXIDE LEVEL 26 MEQ/L (21-32); CHLORIDE LEVEL 104 MEQ/L (98-107); CREATININE FOR GFR 0.84 MG/DL (0.55-1.30); FOLLICLE STIMULATING HORMONE 4.2 mIU/mL; GLOMERULAR FILTRATION RATE > 60.0 (>60); GLUCOSE, FASTING 70 MG/DL (70-100); LUTEINIZING HORMONE 3.5 mIU/mL; POTASSIUM SERUM 4.3 MEQ/L (3.5-5.1); SODIUM LEVEL 139 MEQ/L (136-145); TOTAL 25(OH) VITAMIN D 52.8 NG/ML (30.0-100.0); TOTAL PROTEIN 7.2 GM/DL (6.4-8.2)
[2020-08-07 18:08] LABS: INSULIN LEVEL 19.1 uIU/mL (2.6-24.9); TESTOSTERONE FREE (DIRECT) 0.9 pg/mL (0.0-4.2)
== END ==
LOC: M LABDRWAD 16:03
PROVIDERS: ATTEND Family Medicine
DX: E06.3 Autoimmune thyroiditis (principal); E28.2 Polycystic ovarian syndrome

== ENCOUNTER → 2021-01-17 | Outpatient (REF) | payer OTHER ==
[~2021-01-17] MED LIST changes: +EMTR1TAB16 PO; -TRUVTAB PO
[2021-01-17 13:41] LABS: ALT/SGPT 54 U/L (12-78); BILIRUBIN,TOTAL 0.6 MG/DL (0.2-1.0); BLOOD UREA NITROGEN 14 MG/DL (7-18); CARBON DIOXIDE LEVEL 27 MEQ/L (21-32); CHLORIDE LEVEL 106 MEQ/L (98-107); CREATININE FOR GFR 0.87 MG/DL (0.55-1.30); FREE T4 0.76 NG/DL (0.76-1.46); GLOMERULAR FILTRATION RATE > 60.0 (>60); GLUCOSE, FASTING 91 MG/DL (70-100); POTASSIUM SERUM 4.4 MEQ/L (3.5-5.1); SODIUM LEVEL 140 MEQ/L (136-145); TOTAL PROTEIN 7.7 GM/DL (6.4-8.2)
[2021-01-17 14:15] LABS: HEMOGLOBIN A1c 5.3 %
== END ==
LOC: M LABDRWAD 12:07
PROVIDERS: ATTEND Physician Assistant
DX: Z00.00 Encounter for general adult medical examination without abnormal findings (principal); E28.2 Polycystic ovarian syndrome; E06.3 Autoimmune thyroiditis; E66.09 Other obesity due to excess calories

== ENCOUNTER → 2021-03-18 | Outpatient (CLI) | payer OTHER ==
[2021-03-18 16:59] LABS: FREE T4 0.99 NG/DL (0.76-1.46); THYROID STIMULATING HORMONE 0.963 uIU/ML (0.358-3.740)
== END ==
LOC: M LAB 16:04
PROVIDERS: ATTEND Family Medicine
DX: E06.3 Autoimmune thyroiditis (principal)

== ENCOUNTER → 2021-08-20 | Outpatient (CLI) | payer OTHER ==
[2021-08-20 11:49] LABS: BASO # 0.1 10^3/uL (0.0-0.2); EOS # 0.4 10^3/uL (0.0-0.5); EOS % 3.9 % (0.0-3.0); HEMATOCRIT 44.7 % (36.0-47.0); HEMOGLOBIN 14.6 g/dl (12.0-15.5); LYMPH # 1.8 10^3/uL (1.5-5.0); LYMPH % 19.2 % (24.0-44.0); MEAN CORPUSCULAR HEMOGLOBIN 28.3 pg (27.0-33.0); MEAN CORPUSCULAR HGB CONC 32.7 g/dl (32.0-36.5); MEAN CORPUSCULAR VOLUME 86.6 fl (80.0-96.0); MONO # 0.6 10^3/uL (0.0-0.8); MONO % 6.2 % (2.0-8.0); NEUTROPHILS # 6.5 10^3/uL (1.5-8.5); NEUTROPHILS % 69.4 % (36.0-66.0); PLATELET COUNT, AUTOMATED 270 10^3/uL (150-450); RED BLOOD COUNT 5.16 10^6/uL (4.00-5.40); WHITE BLOOD COUNT 9.4 10^3/uL (4.0-10.0)
[2021-08-20 12:17] LABS: ALBUMIN 3.8 GM/DL (3.2-5.2); ALT/SGPT 33 U/L (12-78); BILIRUBIN,TOTAL 0.5 MG/DL (0.2-1.0); BLOOD UREA NITROGEN 12 MG/DL (7-18); CALCIUM LEVEL 8.6 MG/DL (8.5-10.1); CARBON DIOXIDE LEVEL 27 MEQ/L (21-32); CHLORIDE LEVEL 107 MEQ/L (98-107); CHOLESTEROL LEVEL 171 MG/DL (<200); CHOLESTEROL RISK RATIO 4.275 (<5); CREATININE FOR GFR 0.84 MG/DL (0.55-1.30); FREE T4 0.96 NG/DL (0.76-1.46); GLOMERULAR FILTRATION RATE > 60.0 (>60); GLUCOSE, FASTING 77 MG/DL (70-100); HDL CHOLESTEROL 40 MG/DL (>40); LDL CHOLESTEROL 106 MG/DL (<100); NON-HDL-C 131 MG/DL; POTASSIUM SERUM 4.1 MEQ/L (3.5-5.1); SODIUM LEVEL 140 MEQ/L (136-145); TOTAL PROTEIN 7.3 GM/DL (6.4-8.2); TRIGLYCERIDES LEVEL 123 MG/DL (<150)
[2021-08-22 12:01] LABS: TOTAL 25(OH) VITAMIN D 48.9 NG/ML (30.0-100.0)
== END ==
LOC: M LAB 10:56
PROVIDERS: ATTEND Family Medicine
DX: Z13.220 Encounter for screening for lipoid disorders (principal)

== ENCOUNTER → 2022-04-08 | Outpatient (CLI) | payer OTHER ==
[2022-04-08 12:20] LABS: BLOOD UREA NITROGEN 10 MG/DL (7-18); CALCIUM LEVEL 9.2 MG/DL (8.5-10.1); CARBON DIOXIDE LEVEL 25 MEQ/L (21-32); CHLORIDE LEVEL 106 MEQ/L (98-107); CREATININE FOR GFR 0.91 MG/DL (0.55-1.30); GLOMERULAR FILTRATION RATE > 60.0 (>60); GLUCOSE, FASTING 96 MG/DL (70-100); POTASSIUM SERUM 4.4 MEQ/L (3.5-5.1); SODIUM LEVEL 138 MEQ/L (136-145)
== END ==
LOC: M LAB 11:20
PROVIDERS: ATTEND Nurse Practitioner Adult Health
DX: I10 Essential (primary) hypertension (principal)

== ENCOUNTER → 2022-07-22 | Outpatient (CLI) | payer OTHER ==
[2022-07-22 13:12] LABS: BLOOD UREA NITROGEN 14 MG/DL (9-23); CALCIUM LEVEL 9.1 MG/DL (8.5-10.1); CARBON DIOXIDE LEVEL 26 MMOL/L (20-31); CHLORIDE LEVEL 104 MMOL/L (98-107); CREATININE FOR GFR 0.82 MG/DL (0.55-1.30); GLOMERULAR FILTRATION RATE > 60.0 (>60); GLUCOSE, FASTING 63 MG/DL (60-100); POTASSIUM SERUM 3.9 MMOL/L (3.5-5.1); SODIUM LEVEL 139 MMOL/L (136-145)
== END ==
LOC: M LAB 11:55
PROVIDERS: ATTEND Nurse Practitioner Adult Health
DX: I10 Essential (primary) hypertension (principal)

== ENCOUNTER → 2022-10-02 | Outpatient (CLI) | payer OTHER ==
[2022-10-02 10:25] LABS: BASO # 0.1 10^3/uL (0.0-0.2); BASO % 0.7 % (0.0-1.0); EOS # 0.3 10^3/uL (0.0-0.5); EOS % 3.2 % (0.0-3.0); HEMATOCRIT 41.2 % (36.0-47.0); HEMOGLOBIN 13.7 g/dl (12.0-15.5); LYMPH # 1.8 10^3/uL (1.5-5.0); LYMPH % 16.9 % (24.0-44.0); MEAN CORPUSCULAR HEMOGLOBIN 28.7 pg (27.0-33.0); MEAN CORPUSCULAR HGB CONC 33.3 g/dl (32.0-36.5); MEAN CORPUSCULAR VOLUME 86.2 fl (80.0-96.0); MONO # 0.5 10^3/uL (0.0-0.8); MONO % 4.3 % (2.0-8.0); NEUTROPHILS # 7.7 10^3/uL (1.5-8.5); NEUTROPHILS % 74.4 % (36.0-66.0); PLATELET COUNT, AUTOMATED 322 10^3/uL (150-450); RED BLOOD COUNT 4.78 10^6/uL (4.00-5.40); WHITE BLOOD COUNT 10.4 10^3/uL (4.0-10.0)
[2022-10-02 12:12] LABS: HEMOGLOBIN A1c 5.6 % (4.0-6.0)
[2022-10-02 13:29] LABS: ALBUMIN 3.6 G/DL (3.2-5.2); ALKALINE PHOSPHATASE 126 U/L (46-116); ALT/SGPT 41 U/L (7.0-40); AST/SGOT 22 U/L (<34); BILIRUBIN,TOTAL 0.3 MG/DL (0.3-1.2); BLOOD UREA NITROGEN 10 MG/DL (9-23); CALCIUM LEVEL 8.9 MG/DL (8.5-10.1); CARBON DIOXIDE LEVEL 25 MMOL/L (20-31); CHLORIDE LEVEL 105 MMOL/L (98-107); CHOLESTEROL LEVEL 119 MG/DL (<200); CHOLESTEROL RISK RATIO 4.21 (<5); FREE T4 1.18 NG/DL (0.89-1.76); GLOMERULAR FILTRATION RATE > 60.0 (>60); GLUCOSE, FASTING 94 MG/DL (60-100); HDL CHOLESTEROL 28.2 MG/DL (>40); NON-HDL-C 90.8 MG/DL; SODIUM LEVEL 138 MMOL/L (136-145)
[2022-10-02 14:41] LABS: THYROID STIMULATING HORMONE 1.694 uIU/ML (0.55-4.78)
[2022-10-02 18:55] LABS: LDL CHOLESTEROL 68.8 MG/DL (<100); TOTAL PROTEIN 6.9 G/DL (5.7-8.2); TRIGLYCERIDES LEVEL 110 MG/DL (<150)
== END ==
LOC: M LAB 09:53
PROVIDERS: ATTEND Nurse Practitioner Adult Health
DX: I10 Essential (primary) hypertension (principal); E06.3 Autoimmune thyroiditis; Z13.220 Encounter for screening for lipoid disorders

== ENCOUNTER → 2023-09-28 | Outpatient (CLI) | payer OTHER ==
[2023-09-28 11:44] LABS: BASO # 0.1 10^3/uL (0.0-0.2); BASO % 0.7 % (0.0-1.0); EOS # 0.3 10^3/uL (0.0-0.5); EOS % 3.3 % (0.0-3.0); HEMATOCRIT 38.9 % (36.0-47.0); HEMOGLOBIN 12.9 g/dl (12.0-15.5); LYMPH # 1.9 10^3/uL (1.5-5.0); LYMPH % 23.2 % (24.0-44.0); MEAN CORPUSCULAR HEMOGLOBIN 26.3 pg (27.0-33.0); MEAN CORPUSCULAR HGB CONC 33.2 g/dl (32.0-36.5); MEAN CORPUSCULAR VOLUME 79.4 fl (80.0-96.0); MONO # 0.5 10^3/uL (0.0-0.8); MONO % 5.8 % (2.0-8.0); NEUTROPHILS # 5.4 10^3/uL (1.5-8.5); NEUTROPHILS % 66.8 % (36.0-66.0); PLATELET COUNT, AUTOMATED 288 10^3/uL (150-450); WHITE BLOOD COUNT 8.1 10^3/uL (4.0-10.0)
[2023-09-28 11:48] LABS: ERYTHROCYTE SEDIMENTATION RATE 21 mm/hr (0-20)
[2023-09-28 12:13] LABS: URIC ACID 4.7 MG/DL (3.1-7.8)
[2023-09-28 12:17] LABS: ALBUMIN 3.7 G/DL (3.2-5.2); ALKALINE PHOSPHATASE 110 U/L (46-116); ALT/SGPT 41 U/L (7.0-40); AST/SGOT 17 U/L (<34); BILIRUBIN,TOTAL 0.6 MG/DL (0.3-1.2); BLOOD UREA NITROGEN 15 MG/DL (9-23); CALCIUM LEVEL 9.2 MG/DL (8.5-10.1); CARBON DIOXIDE LEVEL 27 MMOL/L (20-31); CHLORIDE LEVEL 106 MMOL/L (98-107); CREATININE FOR GFR 0.78 MG/DL (0.55-1.30); GLOMERULAR FILTRATION RATE > 60.0 (>60); GLUCOSE, FASTING 103 MG/DL (60-100); IRON (FE) 58 UG/DL (50-170); PERCENT SATURATION 15.8 % (13.2-45.0); POTASSIUM SERUM 3.9 MMOL/L (3.5-5.1); RHEUMATOID FACTOR QUANT 4.9 IU/ML (<14); SODIUM LEVEL 137 MMOL/L (136-145); TOTAL IRON BINDING CAPACITY 368 UG/DL (250-425); TOTAL PROTEIN 6.6 G/DL (5.7-8.2)
[2023-09-28 12:18] LABS: TOTAL 25(OH) VITAMIN D 85.3 NG/ML (20.0-100.0)
[2023-09-28 12:19] LABS: FOLATE 17.7 NG/ML (>5.4); VITAMIN B12 LEVEL 566 PG/ML (211-911)
[2023-09-29 21:06] LABS: ANA (HEP2) Negative (.); CYCLIC CITRULLINATED PEPTIDE 6 units (0-19)
== END ==
LOC: M SLEEP HO 10:58
PROVIDERS: ATTEND Nurse Practitioner Adult Health
DX: E06.3 Autoimmune thyroiditis (principal); I10 Essential (primary) hypertension; E55.9 Vitamin D deficiency, unspecified; M25.50 Pain in unspecified joint; R53.83 Other fatigue
CPT/HCPCS: 36415; 80053; 82306; 82607; 82746; 83550; 84550; 85025; 85652; 86038; 86140; 86200; 86431; 86618; G0399

== ENCOUNTER → 2024-02-12 | Outpatient (CLI) | payer OTHER | LOC: M WHC 06:47 | PROVIDERS: ATTEND Nurse Practitioner Adult Health | DX: Z12.31 Encounter for screening mammogram for malignant neoplasm of breast (principal); N63.15 Unspecified lump in the right breast, overlapping quadrants ==

== ENCOUNTER → 2024-02-27 | Outpatient (CLI) | payer OTHER | LOC: M WHC 08:10 | PROVIDERS: ATTEND Nurse Practitioner Adult Health | DX: R92.2 Inconclusive mammogram (principal) ==

== ENCOUNTER → 2024-05-24 | Outpatient (CLI) | payer OTHER ==
[2024-05-24 11:41] LABS: BASO # 0.1 10^3/uL (0.0-0.2); BASO % 0.6 % (0.0-1.0); EOS # 0.3 10^3/uL (0.0-0.5); EOS % 2.7 % (0.0-3.0); HEMATOCRIT 41.6 % (36.0-47.0); HEMOGLOBIN 13.9 g/dl (12.0-15.5); LYMPH # 1.6 10^3/uL (1.5-5.0); LYMPH % 15.7 % (24.0-44.0); MEAN CORPUSCULAR HEMOGLOBIN 28.3 pg (27.0-33.0); MEAN CORPUSCULAR HGB CONC 33.4 g/dl (32.0-36.5); MEAN CORPUSCULAR VOLUME 84.7 fl (80.0-96.0); MONO # 0.6 10^3/uL (0.0-0.8); MONO % 5.5 % (2.0-8.0); NEUTROPHILS # 7.6 10^3/uL (1.5-8.5); NEUTROPHILS % 75.2 % (36.0-66.0); PLATELET COUNT, AUTOMATED 255 10^3/uL (150-450); RED BLOOD COUNT 4.91 10^6/uL (4.00-5.40)
[2024-05-24 12:12] LABS: ALBUMIN 3.8 G/DL (3.2-5.2); ALKALINE PHOSPHATASE 87 U/L (35-104); ALT/SGPT 28 U/L (7.0-40); AST/SGOT 9 U/L (<34); BILIRUBIN,TOTAL 0.7 MG/DL (0.3-1.2); BLOOD UREA NITROGEN 18 MG/DL (9-23); CALCIUM LEVEL 9.6 MG/DL (8.5-10.1); CARBON DIOXIDE LEVEL 28 MMOL/L (20-31); CHLORIDE LEVEL 105 MMOL/L (98-107); CHOLESTEROL LEVEL 160 MG/DL (<200); CHOLESTEROL RISK RATIO 4.73 (<5); CREATININE FOR GFR 0.87 MG/DL (0.55-1.30); GLOMERULAR FILTRATION RATE > 60.0 (>58); GLUCOSE, FASTING 85 MG/DL (60-100); HDL CHOLESTEROL 33.8 MG/DL (>40); LDL CHOLESTEROL 99.2 MG/DL (<100); NON-HDL-C 126.2 MG/DL; POTASSIUM SERUM 3.6 MMOL/L (3.5-5.1); SODIUM LEVEL 142 MMOL/L (136-145); TRIGLYCERIDES LEVEL 135 MG/DL (<150)
[2024-05-24 12:13] LABS: THYROID STIMULATING HORMONE 1.243 uIU/ML (0.55-4.78); TOTAL 25(OH) VITAMIN D 126.4 NG/ML (20.0-100.0)
[2024-05-24 12:14] LABS: FREE T4 1.09 NG/DL (0.89-1.76)
[2024-05-24 12:24] LABS: HEMOGLOBIN A1c 4.8 % (4.0-6.0)
== END ==
LOC: M LAB 10:31
PROVIDERS: ATTEND Nurse Practitioner Adult Health
DX: E11.65 Type 2 diabetes mellitus with hyperglycemia (principal)

== ENCOUNTER → 2024-08-30 | Outpatient (CLI) | payer OTHER ==
[2024-08-30 14:14] LABS: BASO # 0.1 10^3/uL (0.0-0.2); BASO % 0.9 % (0.0-1.0); EOS # 0.2 10^3/uL (0.0-0.5); EOS % 2.6 % (0.0-3.0); HEMATOCRIT 42.3 % (36.0-47.0); HEMOGLOBIN 14.1 g/dl (12.0-15.5); LYMPH # 2.1 10^3/uL (1.5-5.0); LYMPH % 23.4 % (24.0-44.0); MEAN CORPUSCULAR HEMOGLOBIN 28.5 pg (27.0-33.0); MEAN CORPUSCULAR HGB CONC 33.3 g/dl (32.0-36.5); MEAN CORPUSCULAR VOLUME 85.5 fl (80.0-96.0); MONO # 0.5 10^3/uL (0.0-0.8); MONO % 5.7 % (2.0-8.0); NEUTROPHILS # 5.9 10^3/uL (1.5-8.5); NEUTROPHILS % 67.1 % (36.0-66.0); PLATELET COUNT, AUTOMATED 286 10^3/uL (150-450); RED BLOOD COUNT 4.95 10^6/uL (4.00-5.40); WHITE BLOOD COUNT 8.8 10^3/uL (4.0-10.0)
[2024-08-30 14:33] LABS: HEMOGLOBIN A1c 4.7 % (4.0-6.0)
[2024-08-30 15:07] LABS: BLOOD UREA NITROGEN 13 MG/DL (9-23); CALCIUM LEVEL 8.8 MG/DL (8.5-10.1); CARBON DIOXIDE LEVEL 29 MMOL/L (20-31); CHLORIDE LEVEL 103 MMOL/L (98-107); CREATININE FOR GFR 0.81 MG/DL (0.55-1.30); GLOMERULAR FILTRATION RATE > 60.0 (>58); GLUCOSE, FASTING 77 MG/DL (60-100); POTASSIUM SERUM 3.3 MMOL/L (3.5-5.1); SODIUM LEVEL 140 MMOL/L (136-145)
[2024-08-30 15:09] LABS: TOTAL 25(OH) VITAMIN D 76.8 NG/ML (20.0-100.0)
== END ==
LOC: M LAB 13:39
PROVIDERS: ATTEND Nurse Practitioner Adult Health
DX: E11.65 Type 2 diabetes mellitus with hyperglycemia (principal)

== ENCOUNTER → 2025-05-23 | Outpatient (CLI) | payer OTHER ==
[2025-05-23 12:31] LABS: BASO # 0.1 10^3/uL (0.0-0.2); BASO % 1.0 % (0.0-1.0); EOS # 0.2 10^3/uL (0.0-0.5); EOS % 2.9 % (0.0-3.0); LYMPH # 1.4 10^3/uL (1.5-5.0); LYMPH % 16.2 % (24.0-44.0); MONO # 0.5 10^3/uL (0.0-0.8); MONO % 6.3 % (2.0-8.0); NEUTROPHILS # 6.2 10^3/uL (1.5-8.5); NEUTROPHILS % 73.5 % (36.0-66.0); PLATELET COUNT, AUTOMATED 258 10^3/uL (150-450)
[2025-05-23 12:58] LABS: ALT/SGPT 33 U/L (7.0-40); AST/SGOT 18 U/L (<34); CALCIUM LEVEL 8.8 MG/DL (8.5-10.1); CARBON DIOXIDE LEVEL 27 MMOL/L (20-31); CHLORIDE LEVEL 106 MMOL/L (98-107); CHOLESTEROL LEVEL 150 MG/DL (<200); CHOLESTEROL RISK RATIO 2.97 (<5); CREATININE FOR GFR 0.82 MG/DL (0.55-1.30); GLOMERULAR FILTRATION RATE > 90.0 (>58); LDL CHOLESTEROL 84.6 MG/DL (<100); NON-HDL-C 99.6 MG/DL; POTASSIUM SERUM 4.5 MMOL/L (3.5-5.1); SODIUM LEVEL 141 MMOL/L (136-145); TRIGLYCERIDES LEVEL 75 MG/DL (<150)
[2025-05-23 12:58] LABS: MALB URINE SIEMENS 6.0 MG/L
[2025-05-23 12:59] LABS: TOTAL 25(OH) VITAMIN D 85.0 NG/ML (20.0-100.0)
[2025-05-23 13:00] LABS: FREE T4 1.14 NG/DL (0.89-1.76)
[2025-05-23 13:16] LABS: CREATININE, URINE 264.0 MG/DL; MAU/CREAT RATIO 2.2 MCG/MG (0.0-30.0)
[2025-05-23 13:42] LABS: ESTIMATED AVERAGE GLUCOSE 91.0 MG/DL (60-110)
== END ==
LOC: M LAB 11:38
PROVIDERS: ATTEND Nurse Practitioner Adult Health
DX: E11.65 Type 2 diabetes mellitus with hyperglycemia (principal); E06.3 Autoimmune thyroiditis; E55.9 Vitamin D deficiency, unspecified